=== PATIENT | female | born 1940 | race Asian ===

== ENCOUNTER 2018-11-19 11:53 | Emergency (ER) | payer MEDICARE, MEDICAID ==
[~2018-11-19] VITALS: Ht 157.5 cm; Wt 43.0 kg
[2018-11-19 19:00] VITALS: BP 147/74
[2018-11-19] MEDS ORDERED: BACITRACIN ZINC OINT UDPKT TOP ONE (19:15)
== END 2018-11-19 20:41 | disposition home or self-care (01) ==
LOC: ER 13:52
DX: S00.91XA Abrasion of unspecified part of head, initial encounter (principal); S09.8XXA Other specified injuries of head, initial encounter; Z91.018 Allergy to other foods; Z90.49 Acquired absence of other specified parts of digestive tract; W01.0XXA Fall on same level from slipping, tripping and stumbling without subsequent striking against object, initial encounter; Y93.89 Activity, other specified; Y92.89 Other specified places as the place of occurrence of the external cause; Y99.8 Other external cause status
CPT/HCPCS: 70486; 99284

== ENCOUNTER 2021-03-13 14:30 | Inpatient (IN) | payer MEDICARE, MEDICAID ==
[~2021-03-13] VITALS: Ht 160 cm; Wt 39.0 kg
[2021-03-13] MEDS ORDERED: MORPHINE SULFATE 4 MG/ML CPJ (NOT FOR IM USE) IV STA (16:05)
[2021-03-13] MEDS ORDERED: SODIUM CHLORIDE 0.9% 1,000 ML IV ONE (16:15)
[2021-03-13 16:39] LABS: BASOPHILS % 0.4 % (0.0-2.0); EOSINOPHILS % 0.2 % (0.0-5.0); HEMATOCRIT. 36.6 % (36.0-48.0); HEMOGLOBIN. 12.7 g/dL (12.0-16.0); LYMPHOCYTES % 10.8 % (20.0-50.0); MEAN CORPUSCULAR HEMOGLOBIN 33.6 pg (28.0-32.0); MEAN PLATELET VOLUME 10.8 fl (7.4-10.4); MONOCYTES % 6.1 % (2.0-8.0); NEUTROPHILS % 82.5 % (40.0-76.0); PLATELET 150 x1000/uL (130-400); RED BLOOD CELL COUNT 3.78 mill/uL (4.2-5.4); RED CELL DISTRIBUTION WIDTH 12.3 % (11.6-14.6)
[2021-03-13 16:48] LABS: INR 0.9
[2021-03-13 16:49] LABS: CHLORIDE 99 mEq/L (98-107)
[2021-03-13] MEDS ORDERED: MORPHINE SULFATE 4 MG/ML CPJ (NOT FOR IM USE) IV ONE (17:30)
[2021-03-13 23:10] VITALS: BP 153/65
[2021-03-14] MEDS ORDERED: CLONIDINE 0.1MG TABLET PO PRN
[2021-03-14] MEDS ORDERED: DEXTROSE 50% WATER 50ML SYRINGE IV PRN
[2021-03-14] MEDS ORDERED: ONDANSETRON HCL 4MG/2ML INJ IV PRN
[2021-03-14 00:40] VITALS: BP 151/72
[2021-03-14 04:00] VITALS: BP 114/61
[2021-03-14 05:59] LABS: CHLORIDE 104 mEq/L (98-107)
[2021-03-14] MEDS: BLOOD SUGAR DIAGNOSTIC STRIP TEST SCH ×2 (06:32→12:37)
[2021-03-14 06:34] LABS: HEMATOCRIT. 32.6 % (36.0-48.0); HEMOGLOBIN. 11.6 g/dL (12.0-16.0); MEAN CORPUSCULAR HEMOGLOBIN 34.5 pg (28.0-32.0); MEAN CORPUSCULAR VOLUME 96.6 fL (81.0-99.0); MEAN PLATELET VOLUME 10.6 fl (7.4-10.4); PLATELET 125 x1000/uL (130-400); RED BLOOD CELL COUNT 3.37 mill/uL (4.2-5.4); RED CELL DISTRIBUTION WIDTH 12.2 % (11.6-14.6)
[2021-03-14] MEDS ORDERED: POTASSIUM CHLORIDE 20MEQ TABLET SR PO SCH (07:00)
[2021-03-14] MEDS: INSULIN LISPRO 100 UNITS/ML SUBCUT SCH ×2 (07:49→12:37)
[2021-03-14 08:05] VITALS: BP 119/50
[2021-03-14] MEDS ORDERED: ENOXAPARIN 40MG/0.4ML SYR SUBCUT SCH (09:00)
[2021-03-14] MEDS: FAMOTIDINE 20MG TABLET PO SCH (09:39)
[2021-03-14] MEDS: METOPROLOL TARTRATE 25MG TABLET PO SCH ×2 (09:39→21:35)
[2021-03-14] MEDS: ENOXAPARIN 30MG/0.3ML SYR SUBCUT SCH (09:40)
[2021-03-14 11:44] VITALS: BP 122/50
[2021-03-14] MEDS ORDERED: POTASSIUM CHLORIDE 20MEQ TABLET SR PO NR ×2 (12:45→15:00)
[2021-03-14] MEDS: MORPHINE SULFATE 2 MG/ML CPJ (NOT FOR IM USE) IV PRN (15:17)
[2021-03-14 16:01] VITALS: BP 137/75
[2021-03-14 20:33] VITALS: BP 133/71
[2021-03-15 00:08] VITALS: BP 136/68
[2021-03-15 01:26] LABS: PLATELET ESTIMATE SLIGHTLY DECREASED
[2021-03-15 04:00] VITALS: BP 166/99
[2021-03-15] MEDS ORDERED: BUPIVACAINE HCL/PF 0.5% (5MG/ML) 10ML ONE (06:49)
[2021-03-15] MEDS ORDERED: POLYMYXIN B SULFATE 500000 UNITS/VIAL ONE (06:49)
[2021-03-15] MEDS ORDERED: VANCOMYCIN HCL 1 GM/VIAL ONE (06:49)
[2021-03-15] MEDS ORDERED: GLYCOPYRROLATE 0.2 MG/ML 2ML VIAL ONE (07:57)
[2021-03-15] MEDS ORDERED: DEXAMETHASONE 4MG/ML 1ML VIAL ONE (08:03)
[2021-03-15] MEDS ORDERED: HYDROMORPHONE HCL/PF 2MG/ML (OR) ONE (08:04)
[2021-03-15] MEDS ORDERED: ONDANSETRON HCL 4MG/2ML INJ IV PRN (08:45)
[2021-03-15] MEDS ORDERED: MEPERIDINE HCL/PF 25MG/ML CPJ IV PRN (08:45)
[2021-03-15] MEDS: ENOXAPARIN 30MG/0.3ML SYR SUBCUT SCH (09:00)
[2021-03-15] MEDS: METOPROLOL TARTRATE 25MG TABLET PO SCH ×2 (09:00→21:56)
[2021-03-15] MEDS: FAMOTIDINE 20MG TABLET PO SCH (09:00)
[2021-03-15 11:00] VITALS: BP 102/65
[2021-03-15] MEDS ORDERED: CEFAZOLIN SODIUM 1000MG/VIAL IV SCH (14:00)
[2021-03-15] MEDS: CEFAZOLIN 1000MG PREMIX 50 ML IV SCH ×2 (14:52→21:56)
[2021-03-15 16:00] VITALS: BP 137/76
[2021-03-15 19:59] LABS: HEMATOCRIT. 30.8 % (36.0-48.0); HEMOGLOBIN. 10.6 g/dL (12.0-16.0); MEAN CORPUSCULAR HEMOGLOBIN 33.5 pg (28.0-32.0); MEAN CORPUSCULAR VOLUME 97.5 fL (81.0-99.0); MEAN PLATELET VOLUME 10.6 fl (7.4-10.4); PLATELET 129 x1000/uL (130-400); RED BLOOD CELL COUNT 3.16 mill/uL (4.2-5.4); RED CELL DISTRIBUTION WIDTH 12.3 % (11.6-14.6)
[2021-03-15 20:00] VITALS: BP 114/65
[2021-03-15 20:05] LABS: CHLORIDE 102 mEq/L (98-107)
[2021-03-15 20:53] LABS: PLATELET ESTIMATE DECREASED
[2021-03-15] MEDS: MORPHINE SULFATE 2 MG/ML CPJ (NOT FOR IM USE) IV PRN (22:01)
[2021-03-16 00:45] VITALS: BP 102/57
[2021-03-16 04:36] VITALS: BP 117/70
[2021-03-16 06:11] LABS: BASOPHILS % 0.2 % (0.0-2.0); LYMPHOCYTES % 8.9 % (20.0-50.0); MEAN CORPUSCULAR HEMOGLOBIN 33.8 pg (28.0-32.0); MEAN CORPUSCULAR VOLUME 97.8 fL (81.0-99.0); MEAN PLATELET VOLUME 10.5 fl (7.4-10.4); NEUTROPHILS % 80.9 % (40.0-76.0); PLATELET 118 x1000/uL (130-400); RED BLOOD CELL COUNT 2.96 mill/uL (4.2-5.4); RED CELL DISTRIBUTION WIDTH 12.4 % (11.6-14.6)
[2021-03-16] MEDS: CEFAZOLIN 1000MG PREMIX 50 ML IV SCH (06:22)
[2021-03-16 06:40] LABS: CHLORIDE 102 mEq/L (98-107)
[2021-03-16 08:00] VITALS: BP 127/61
[2021-03-16] MEDS: METOPROLOL TARTRATE 25MG TABLET PO SCH ×2 (08:36→21:00)
[2021-03-16] MEDS: FAMOTIDINE 20MG TABLET PO SCH (08:36)
[2021-03-16] MEDS: ENOXAPARIN 30MG/0.3ML SYR SUBCUT SCH (08:36)
[2021-03-16] MEDS ORDERED: POTASSIUM CHLORIDE 20MEQ TABLET SR PO NR (10:00)
[2021-03-16] MEDS ORDERED: LORAZEPAM 2MG/ML CPJ IV PRN ×2 (10:00→16:00)
[2021-03-16 12:00] VITALS: BP 130/66
[2021-03-16] MEDS: RISPERIDONE 0.5MG TABLET PO SCH ×2 (13:47→21:22)
[2021-03-16 16:00] VITALS: BP 98/50
[2021-03-16] MEDS ORDERED: RISPERIDONE 0.5MG TABLET PO SCH (17:00)
[2021-03-16] MEDS: FERROUS SULFATE 325MG TABLET PO SCH (17:37)
[2021-03-16] MEDS: DOCUSATE SODIUM 100MG CAPSULE PO SCH (17:37)
[2021-03-16] MEDS: DONEPEZIL HCL 5MG TABLET PO SCH (17:38)
[2021-03-16 18:46] LABS: CLARITY URINE CLOUDY (CLEAR); COLOR URINE YELLOW (YELLOW); KETONES URINE 1+ (NEGATIVE); LEUKOCYTE ESTERASE URINE NEGATIVE (NEGATIVE); NITRITE URINE NEGATIVE (NEGATIVE); OCCULT BLOOD URINE NEGATIVE (NEGATIVE); PROTEIN URINE TRACE (NEGATIVE); SPECIFIC GRAVITY URINE 1.021 (1.005-1.030); UROBILINOGEN URINE 0.2 E.U./dL (0.2-1.0)
[2021-03-16 20:00] VITALS: BP 103/54
[2021-03-17] VITALS (7 sets, daily range): BP systolic 98–116; BP diastolic 34–60
[2021-03-17] MEDS: ENOXAPARIN 30MG/0.3ML SYR SUBCUT SCH (08:48)
[2021-03-17] MEDS: RISPERIDONE 0.5MG TABLET PO SCH ×2 (08:56→21:03)
[2021-03-17] MEDS: METOPROLOL TARTRATE 25MG TABLET PO SCH ×2 (08:56→21:00)
[2021-03-17] MEDS: DONEPEZIL HCL 5MG TABLET PO SCH (08:56)
[2021-03-17] MEDS: FAMOTIDINE 20MG TABLET PO SCH (08:56)
[2021-03-17] MEDS: FERROUS SULFATE 325MG TABLET PO SCH ×3 (08:56→17:16)
[2021-03-17] MEDS: DOCUSATE SODIUM 100MG CAPSULE PO SCH ×3 (08:56→17:00)
[2021-03-17] MEDS: LACTULOSE 20G/30ML UDC PO PRN (17:16)
[2021-03-17 18:23] LABS: BASOPHILS % 0.3 % (0.0-2.0); EOSINOPHILS % 0.2 % (0.0-5.0); HEMATOCRIT. 24.1 % (36.0-48.0); HEMOGLOBIN. 8.6 g/dL (12.0-16.0); LYMPHOCYTES % 10.8 % (20.0-50.0); MEAN CORPUSCULAR HEMOGLOBIN 34.3 pg (28.0-32.0); MEAN CORPUSCULAR VOLUME 96.2 fL (81.0-99.0); MEAN PLATELET VOLUME 10.2 fl (7.4-10.4); MONOCYTES % 10.3 % (2.0-8.0); NEUTROPHILS % 78.4 % (40.0-76.0); PLATELET 127 x1000/uL (130-400); RED BLOOD CELL COUNT 2.51 mill/uL (4.2-5.4); RED CELL DISTRIBUTION WIDTH 12.4 % (11.6-14.6)
[2021-03-17 18:32] LABS: CHLORIDE 107 mEq/L (98-107)
[2021-03-18 04:00] VITALS: BP 122/66
[2021-03-18 08:14] VITALS: BP 117/53
[2021-03-18] MEDS: FAMOTIDINE 20MG TABLET PO SCH (08:31)
[2021-03-18] MEDS: FERROUS SULFATE 325MG TABLET PO SCH ×3 (08:31→17:18)
[2021-03-18] MEDS: DONEPEZIL HCL 5MG TABLET PO SCH (08:31)
[2021-03-18] MEDS: ENOXAPARIN 30MG/0.3ML SYR SUBCUT SCH (08:31)
[2021-03-18] MEDS: RISPERIDONE 0.5MG TABLET PO SCH ×2 (08:32→20:50)
[2021-03-18] MEDS: DOCUSATE SODIUM 100MG CAPSULE PO SCH ×2 (08:32→17:18)
[2021-03-18] MEDS: METOPROLOL TARTRATE 25MG TABLET PO SCH ×2 (08:32→20:52)
[2021-03-18 12:12] VITALS: BP 128/64
[2021-03-18 16:05] VITALS: BP 110/55
[2021-03-18] MEDS: LACTULOSE 20G/30ML UDC PO PRN (17:18)
[2021-03-18 20:00] VITALS: BP_SYST 119; BP_SYST 150; BP_DIAS 57; BP_DIAS 77
[2021-03-18] MEDS: MORPHINE SULFATE 2 MG/ML CPJ (NOT FOR IM USE) IV PRN (20:52)
[2021-03-19] VITALS (7 sets, daily range): BP systolic 97–133; BP diastolic 52–64
[2021-03-19] MEDS: FERROUS SULFATE 325MG TABLET PO SCH ×3 (07:50→17:50)
[2021-03-19 08:41] LABS: HEMATOCRIT. 25.3 % (36.0-48.0); MEAN CORPUSCULAR HEMOGLOBIN 34.1 pg (28.0-32.0); MEAN CORPUSCULAR VOLUME 96.3 fL (81.0-99.0); MEAN PLATELET VOLUME 9.5 fl (7.4-10.4); PLATELET 186 x1000/uL (130-400); RED BLOOD CELL COUNT 2.63 mill/uL (4.2-5.4); RED CELL DISTRIBUTION WIDTH 12.5 % (11.6-14.6)
[2021-03-19 08:45] LABS: CHLORIDE 103 mEq/L (98-107)
[2021-03-19] MEDS: FAMOTIDINE 20MG TABLET PO SCH (09:00)
[2021-03-19] MEDS: DOCUSATE SODIUM SUGAR FREE 100MG/10ML UDC PO SCH ×2 (09:00→17:00)
[2021-03-19] MEDS: METOPROLOL TARTRATE 25MG TABLET PO SCH ×2 (09:00→20:26)
[2021-03-19] MEDS: RISPERIDONE 0.5MG TABLET PO SCH ×2 (09:00→19:40)
[2021-03-19] MEDS: DONEPEZIL HCL 5MG TABLET PO SCH (09:00)
[2021-03-19] MEDS: ENOXAPARIN 30MG/0.3ML SYR SUBCUT SCH (09:00)
[2021-03-19] MEDS: DEXT 5%/0.45% NACL 500ML 500 ML IV SCH ×2 (13:32→13:54)
[2021-03-19] MEDS: DEXT 5%/0.45% NACL 1000ML 1,000 ML IV SCH ×2 (13:45→14:25)
[2021-03-19] MEDS ORDERED: LORAZEPAM 2MG/ML CPJ IV PRN (16:00)
[2021-03-19] MEDS ORDERED: FLUMAZENIL 0.1 MG/ML 5ML VIAL IV SCH (16:00)
[2021-03-19 23:11] LABS: PLATELET ESTIMATE NORMAL
[2021-03-20] VITALS: BP 155/67
[2021-03-20 04:00] VITALS: BP 150/62
[2021-03-20 08:00] VITALS: BP 144/69
[2021-03-20] MEDS: RISPERIDONE 0.5MG TABLET PO SCH (09:00)
[2021-03-20] MEDS: DOCUSATE SODIUM SUGAR FREE 100MG/10ML UDC PO SCH ×2 (09:00→17:00)
[2021-03-20] MEDS: DONEPEZIL HCL 5MG TABLET PO SCH (09:02)
[2021-03-20] MEDS: METOPROLOL TARTRATE 25MG TABLET PO SCH (09:02)
[2021-03-20] MEDS: FAMOTIDINE 20MG TABLET PO SCH (09:02)
[2021-03-20] MEDS: FERROUS SULFATE 325MG TABLET PO SCH ×3 (09:03→17:50)
[2021-03-20] MEDS: ENOXAPARIN 30MG/0.3ML SYR SUBCUT SCH (09:03)
[2021-03-20 12:00] VITALS: BP 113/42
[2021-03-20 16:00] VITALS: BP 121/60
[2021-03-20 16:08] VITALS: BP 113/42
== END 2021-03-20 20:21 | DRG 481 ==
LOC: ER 14:30 → 6WST 17:39 → ENRESERV 21:18
PROVIDERS: ADMIT Internal Medicine; ATTEND Internal Medicine
PROC: 0QS706Z Reposition Left Upper Femur with Intramedullary Internal Fixation Device, Open Approach (ICD-10-PCS; principal; 2021-03-15)
DX: S72.142A Displaced intertrochanteric fracture of left femur, initial encounter for closed fracture (principal); E87.1 Hypo-osmolality and hyponatremia; F03.90 Unspecified dementia, unspecified severity, without behavioral disturbance, psychotic disturbance, mood disturbance, and anxiety; E87.6 Hypokalemia; D64.9 Anemia, unspecified; I10 Essential (primary) hypertension; I27.20 Pulmonary hypertension, unspecified; Z20.822 Contact with and (suspected) exposure to COVID-19; W18.30XA Fall on same level, unspecified, initial encounter; X58.XXXA Exposure to other specified factors, initial encounter; Z88.2 Allergy status to sulfonamides; Z88.8 Allergy status to other drugs, medicaments and biological substances; Z90.49 Acquired absence of other specified parts of digestive tract; Y92.009 Unspecified place in unspecified non-institutional (private) residence as the place of occurrence of the external cause; Y93.89 Activity, other specified; Y99.8 Other external cause status
CPT/HCPCS: 36415; 73502; 73522; 76000; 80048; 80053; 81003; 82962; 83036; 85025; 86850; 86900; 87426; 93005; 93306; 97110; 97161; 97530; 97535; 99285; C1713; C1893; J0690; J1100; J1170; J1650; J2060; J2270; J3370; J3490; A4315